=== PATIENT | male | born 1940 | race Caucasian/White ===

== ENCOUNTER 2017-03-31 10:29 | Inpatient (IN) | payer MEDICARE, OTHER ==
[~2017-03-31] VITALS: Ht 160 cm; Wt 79.6 kg
[2017-03-31] MEDS ORDERED: DIGOXIN 0.25 MG/ML, 2ML IVPush ONE (13:00)
[2017-03-31] MEDS ORDERED: DILTIAZEM 5 MG/ML, 5ML IVPush ONE (13:00)
[2017-03-31] MEDS ORDERED: PLEASE ENTER ALLERGIES MC SCH ×2 (13:30)
[2017-03-31] MEDS ORDERED: DIGOXIN 0.25 MG/ML, 2ML ONE (13:31)
[2017-03-31] MEDS ORDERED: DILTIAZEM 5 MG/ML, 5ML ONE (13:31)
[2017-03-31 13:37] VITALS: BP 170/100
[2017-03-31 14:00] VITALS: BP 165/80
[2017-03-31] MEDS ORDERED: HYDROcodone/APAP 5/325 TABLET PO PRN (14:30)
[2017-03-31] MEDS ORDERED: ACETAMINOPHEN 325 MG TABLET PO PRN (14:30)
[2017-03-31] MEDS ORDERED: BISACODYL 10 MG SUPP PR PRN (14:30)
[2017-03-31] MEDS ORDERED: DOCUSATE 100 MG CAPSULE PO PRN (14:30)
[2017-03-31] MEDS ORDERED: DIAZEPAM 5 MG/ML, 2ML IV PRN (14:30)
[2017-03-31] MEDS ORDERED: morphine SULFATE 10 MG/ML, 1ML IVPush PRN (14:30)
[2017-03-31] MEDS ORDERED: LABETALOL 5MG/ML 40ML VIAL IVPush PRN (14:30)
[2017-03-31] MEDS ORDERED: ONDANSETRON 2MG/ML, 2ML IVPush PRN (14:30)
[2017-03-31] MEDS ORDERED: GADOBUTROL 7.5 MMOL/7.5 ML PFS ONE (16:01)
[2017-03-31] MEDS: DILTIAZEM 125 MG in SODIUM CHLORIDE 0.9% 100 ML IV SCH (16:26)
[2017-03-31 16:48] LABS: IS PT STATUS REG ER OR PRE ER? NO
[2017-03-31] MEDS: APIXABAN 5 MG TABLET PO SCH (17:47)
[2017-03-31] MEDS: MECLIZINE CHEWABLE 25 MG TAB PO SCH ×2 (17:47→20:36)
[2017-03-31 19:02] VITALS: BP 129/86
[2017-03-31] MEDS: SODIUM CHLORIDE 0.9% 1,000 ML IV SCH (20:37)
[2017-03-31 21:02] LABS: IS PT STATUS REG ER OR PRE ER? NO
[2017-04-01 00:42] VITALS: BP 129/63
[2017-04-01] MEDS: DILTIAZEM 125 MG in SODIUM CHLORIDE 0.9% 100 ML IV SCH (04:12)
[2017-04-01] MEDS: SODIUM CHLORIDE 0.9% 1,000 ML IV SCH (05:39)
[2017-04-01 06:19] LABS: BLOOD UREA NITROGEN 15 mg/dL (7-18)
[2017-04-01 06:43] VITALS: BP 126/64
[2017-04-01] MEDS: APIXABAN 5 MG TABLET PO SCH ×2 (08:21→21:30)
[2017-04-01] MEDS: MECLIZINE CHEWABLE 25 MG TAB PO SCH ×3 (08:21→21:31)
[2017-04-01] MEDS ORDERED: DILTIAZEM 60 MG TABLET PO SCH (13:00)
[2017-04-01 13:30] VITALS: BP 111/69
[2017-04-01] MEDS: CARVEDILOL 6.25 MG TABLET PO SCH (17:59)
[2017-04-01 19:18] VITALS: BP 109/75
[2017-04-02 00:52] VITALS: BP 129/69
[2017-04-02 05:48] LABS: BLOOD UREA NITROGEN 14 mg/dL (7-18)
[2017-04-02] MEDS: CARVEDILOL 6.25 MG TABLET PO SCH ×2 (06:00→17:32)
[2017-04-02 07:19] VITALS: BP 144/74
[2017-04-02] MEDS: APIXABAN 5 MG TABLET PO SCH ×2 (07:50→20:05)
[2017-04-02] MEDS: MECLIZINE CHEWABLE 25 MG TAB PO SCH ×3 (07:50→20:05)
[2017-04-02] MEDS ORDERED: REGADENOSON 0.4 MG/5 ML SYRINGE ONE (08:35)
[2017-04-02] MEDS ORDERED: POTASSIUM CHLORIDE 20 MEQ TAB.ER.PRT PO ONE (09:00)
[2017-04-02] MEDS ORDERED: DIGOXIN 0.25 MG TABLET PO SCH ×2 (09:00)
[2017-04-02] MEDS ORDERED: DIGOXIN 0.125 MG TABLET PO SCH (09:00)
[2017-04-02 14:10] VITALS: BP 145/65
[2017-04-02] MEDS: LISINOPRIL 5 MG TABLET PO SCH (15:37)
[2017-04-02 18:45] VITALS: BP 147/72
[2017-04-02] MEDS: ATORVASTATIN 40 MG TABLET PO SCH (20:12)
[2017-04-03 01:46] VITALS: BP 105/68
[2017-04-03 05:40] LABS: BLOOD UREA NITROGEN 18 mg/dL (7-18)
[2017-04-03] MEDS: CARVEDILOL 6.25 MG TABLET PO SCH ×2 (06:27→17:51)
[2017-04-03 06:34] VITALS: BP 115/64
[2017-04-03] MEDS: MECLIZINE CHEWABLE 25 MG TAB PO SCH ×3 (08:06→21:03)
[2017-04-03] MEDS: LISINOPRIL 5 MG TABLET PO SCH (08:06)
[2017-04-03] MEDS: APIXABAN 5 MG TABLET PO SCH ×2 (08:06→21:03)
[2017-04-03] MEDS: POLYETHYLENE GLYCOL 17 GM PACKET PO PRN (13:02)
[2017-04-03 14:51] VITALS: BP 160/74
[2017-04-03 19:06] VITALS: BP 116/68
[2017-04-03] MEDS: ATORVASTATIN 40 MG TABLET PO SCH (21:04)
[2017-04-04 01:19] VITALS: BP 127/71
[2017-04-04 05:17] LABS: BLOOD UREA NITROGEN 18 mg/dL (7-18)
[2017-04-04 07:53] VITALS: BP 138/75
[2017-04-04 10:05] VITALS: BP 121/68
[2017-04-04] MEDS: POLYETHYLENE GLYCOL 17 GM PACKET PO PRN (10:31)
[2017-04-04] MEDS: LISINOPRIL 5 MG TABLET PO SCH (10:32)
[2017-04-04] MEDS: AMIODARONE 200 MG TABLET PO SCH ×2 (10:32→21:45)
[2017-04-04] MEDS: APIXABAN 5 MG TABLET PO SCH ×2 (10:32→21:44)
[2017-04-04] MEDS: MECLIZINE CHEWABLE 25 MG TAB PO SCH ×2 (10:32→16:00)
[2017-04-04] MEDS: CARVEDILOL 6.25 MG TABLET PO SCH ×2 (10:33→18:30)
[2017-04-04 14:23] VITALS: BP 100/66
[2017-04-04 18:29] VITALS: BP 133/74
[2017-04-04 19:35] VITALS: BP 118/62
[2017-04-04] MEDS: ATORVASTATIN 40 MG TABLET PO SCH (21:44)
[2017-04-05 02:00] VITALS: BP 121/65
[2017-04-05] MEDS: CARVEDILOL 6.25 MG TABLET PO SCH ×2 (06:00→18:30)
[2017-04-05] MEDS: LISINOPRIL 5 MG TABLET PO SCH (10:45)
[2017-04-05] MEDS: APIXABAN 5 MG TABLET PO SCH ×2 (10:45→21:30)
[2017-04-05] MEDS: AMIODARONE 200 MG TABLET PO SCH ×2 (10:45→21:30)
[2017-04-05] MEDS: POLYETHYLENE GLYCOL 17 GM PACKET PO PRN (11:15)
[2017-04-05] MEDS: ATORVASTATIN 40 MG TABLET PO SCH (21:30)
[2017-04-06] MEDS: CARVEDILOL 6.25 MG TABLET PO SCH ×2 (06:00→19:37)
[2017-04-06 08:00] VITALS: BP 115/66
[2017-04-06] MEDS: AMIODARONE 200 MG TABLET PO SCH ×2 (10:20→20:25)
[2017-04-06] MEDS: LISINOPRIL 5 MG TABLET PO SCH (10:20)
[2017-04-06] MEDS: APIXABAN 5 MG TABLET PO SCH ×2 (10:20→20:25)
[2017-04-06] MEDS ORDERED: CARV6.2512 PO (16:32)
[2017-04-06] MEDS ORDERED: ATOR40TA78 PO (16:32)
[2017-04-06] MEDS ORDERED: APIX5TAB PO (16:32)
[2017-04-06] MEDS ORDERED: AMIO200T42 PO (16:32)
[2017-04-06] MEDS ORDERED: LISI5TAB7 PO (16:32)
[2017-04-06 16:37] VITALS: BP 120/72
[2017-04-06 19:30] VITALS: BP 137/66
[2017-04-06] MEDS: ATORVASTATIN 40 MG TABLET PO SCH (20:25)
[2017-04-07 01:30] VITALS: BP 108/65
[2017-04-07 05:57] VITALS: BP 114/60
[2017-04-07] MEDS: CARVEDILOL 6.25 MG TABLET PO SCH (05:59)
[2017-04-07 07:21] VITALS: BP 107/58
[2017-04-07] MEDS: APIXABAN 5 MG TABLET PO SCH (09:06)
[2017-04-07] MEDS: LISINOPRIL 5 MG TABLET PO SCH (09:07)
[2017-04-07] MEDS: AMIODARONE 200 MG TABLET PO SCH (09:07)
== END 2017-04-07 10:15 | DRG 64 ==
LOC: 5SO 12:15
PROVIDERS: ADMIT Family Medicine; ATTEND Family Medicine
DX: I63.9 Cerebral infarction, unspecified (principal); N17.0 Acute kidney failure with tubular necrosis; I48.92 Unspecified atrial flutter; I50.22 Chronic systolic (congestive) heart failure; I42.9 Cardiomyopathy, unspecified; D68.69 Other thrombophilia; I47.2 Ventricular tachycardia; R74.8 Abnormal levels of other serum enzymes; D72.829 Elevated white blood cell count, unspecified; I35.8 Other nonrheumatic aortic valve disorders; M45.9 Ankylosing spondylitis of unspecified sites in spine; I11.0 Hypertensive heart disease with heart failure; J44.9 Chronic obstructive pulmonary disease, unspecified; R00.1 Bradycardia, unspecified; I48.0 Paroxysmal atrial fibrillation; R27.0 Ataxia, unspecified; I65.29 Occlusion and stenosis of unspecified carotid artery; Z83.3 Family history of diabetes mellitus; Z87.891 Personal history of nicotine dependence; Z72.89 Other problems related to lifestyle; Z71.6 Tobacco abuse counseling
CPT/HCPCS: 36415; 70450; 70553; 71010; 76770; 78452; 80048; 80061; 81003; 82436; 82570; 83735; 84133; 84300; 84443; 84484; 85025; 85379; 87040; 93005; 93017; 93880; A9585; C8929; J2785; 92523-GN; A9502; C9898; J1160; J7030